=== PATIENT | female | born 1925 | race Caucasian/White ===

== ENCOUNTER 2016-08-20 22:12 | Emergency (ER) | payer OTHER ==
[2016-08-20 22:18] VITALS: PULSE 73; RESP 18; O2SAT 93
--- NOTE | 2016-08-20 22:34 | CPEKG ---
Heart Rate: 73 RR Interval: 822 QRSD Interval: 96 QT Interval: 404 QTC Interval: 446 QRS Captiva: 68 T Wave Captiva: 26 EKG Severity - ABNORMAL ECG - EKG Impression: sinus rhythm Electronically Signed By: Travis Fu 21-Aug-2016 14:39:07
[2016-08-20 22:50] LABS: ADD DIFF? YES; ADD MORPH? NO; ADD SCAN? NO; ATYPICAL LYMPHOCYTE FLAG 10 (0-99); FRAGMENT RBC FLAG 0 (0-99); HEMATOCRIT 40.5 % (38.0-47.0); HEMOGLOBIN 13.3 g/dL (12.6-16.3); LEFT SHIFT FLG 0 (0-99); LIPEMIA HEMOLYSIS FLAG 80 (0-99); MEAN CELL HEMOGLOBIN 28.4 pg (27.9-34.1); MEAN CELL HEMOGLOBIN CONCENTR. 32.8 g/dL (32.4-36.7); MEAN CELL VOLUME 86.4 fL (81.5-99.8); MEAN PLATELET VOLUME 10.5 fL (8.7-11.7); PLATELET CLUMPS FLAG 0 (0-99); PLATELET COUNT 194 10^3/uL (150-400); RED BLOOD CELL COUNT 4.69 10^6/uL (4.18-5.33); RED CELL DISTRIBUTION WIDTH 14.1 % (11.5-15.2)
[2016-08-20 23:00] LABS: ANION GAP 13 mEq/L (8-16); CALCIUM 9.3 mg/dL (8.5-10.4); CARBON DIOXIDE 26 mEq/l (22-31); CHLORIDE 103 mEq/L (97-110); GLOMERULAR FILTRATION RATE 52; GLUCOSE 115 mg/dL (70-100); POTASSIUM 3.5 mEq/L (3.5-5.2); SODIUM 142 mEq/L (134-144)
[2016-08-20 23:11] LABS: TROPONIN I < 0.012 ng/mL (0-0.034)
[2016-08-20 23:20] LABS: LARGE PLATELETS PRESENT; PLATELET ESTIMATE ADEQUATE (ADEQ)
--- NOTE | 2016-08-20 23:35 | EDPHY ---
H & P Stated Complaint: c/o LUE pain ongoing since 1900 Time Seen by Provider: 08/20/16 22:40 HPI/ROS: HPI The patient presents with left arm pain which began while she was seated watching TV at approximately 7:00 p.m. tonight. The pain came on slowly and has been intermittent ever since, she says it starts in her shoulder and radiates toward her elbow, it is somewhat achy in nature. She had a normal day today, she baked cup cakes. She was feeling well. She has had this pain intermittently over the last several months though this is the most severe episode. Because it was so severe, she called her neighbor who is her doctors . She received aspirin in the 911 was called. She denies any chest pain, shortness of breath, nausea or vomiting. REVIEW OF SYSTEMS Constitutional: No fever, no chills. Eyes: No discharge. ENT: No sore throat. Cardiovascular: No chest pain, no palpitations. Respiratory: No cough, no shortness of breath. Gastrointestinal: No abdominal pain, no vomiting. Genitourinary: No hematuria. Musculoskeletal: No back pain. Skin: No rashes. Neurological: No headache. PMHx: Hypertension, diabetes, history of rib fractures Soc Hx: Lives independently PHYSICAL General Appearance: Alert, no distress Eyes: Pupils equal and round no pallor or injection ENT, Mouth: Mucous membranes moist Respiratory: There are no retractions, lungs are clear to auscultation Cardiovascular: Regular rate and rhythm Gastrointestinal: Abdomen is soft and non-tender, no masses, bowel sounds normal Neurological: A&O, moves all extremities Skin: Warm and dry, no rashes Musculoskeletal: Neck is supple non tender Extremities: symmetrical, full range of motion Psychiatric: Patient is oriented X 3, there is no agitation Source: Patient Exam Limitations: No limitations - Medical/Surgical History Hx Asthma: No Hx Chronic Respiratory Disease: Yes Hx Diabetes: Yes Hx Cardiac Disease: Yes Hx Renal Disease: No Hx Cirrhosis: No Hx Alcoholism: No Hx HIV/AIDS: No Hx Splenectomy or Spleen Trauma: No Other PMH: Aortic tumor removed, Colon CA with surgery, hypercholesterol, HTN, TIA, DM 2 - Social History Smoking Status: Never smoked Constitutional: Initial Vital Signs Temperature (C) 36.8 C 08/20/16 22:14 Heart Rate 73 03/02/17 22:14 Respiratory Rate 18 08/20/16 22:14 Blood Pressure 156/104 H 08/20/16 22:14 O2 Sat (%) 93 08/20/16 22:14 O2 Delivery Mode Room Air Allergies/Adverse Reactions: "too much vitamin C" Allergy (Uncoded 07/10/15 11:34) Home Medications: Medication Instructions Recorded Aspirin [Aspirin 81mg (OTC)] 81 mg PO DAILY 12/06/14 Enalapril Maleate [Vasotec 20 MG 20 mg PO BID@,15 12/06/14 (RX)] Hydrochlorothiazide [HCTZ (RX)] 25 mg PO DAILY 12/06/14 Lovastatin 40 mg PO DAILY 12/06/14 amLODIPine BESYLATE [Norvasc] 5 mg PO DAILY 12/06/14 metFORMIN HCL [Glucophage] 1,000 mg PO HS 12/06/14 metFORMIN HCL [Glucophage] 500 mg PO BID@08,15 12/06/14 Ibuprofen [Motrin (*)] 600 mg PO Q8 #20 tab 07/10/15 Medical Decision Making - Diagnostics EKG Interpretation: EKG: Complete interpretation has been separately recorded in the [facility] archive. Summary impression: T-wave flattening in leads 3, T-wave inversions in V1, interpreted by me Imaging: Chest x-ray shows mild cardiomegaly, unchanged from prior, images reviewed by me and interpreted by Radiology ED Course/Re-evaluation: The patient had improvement in her symptoms without any intervention in the emergency room. Labs were checked and were unremarkable, including initial troponin. Chest x-ray was normal. EKG showed T-wave inversions without any old for comparison. Given that the patient has not ever had any provocative cardiac testing, I feel she should be admitted to the hospital for serial troponins and stress test. There are no beds available in the hospital and the patient was comfortable with transfer out. I spoke with the hospitalist at [facility] and she accepts patient for transfer. Dr. Cha Differential Diagnosis: This is an 89-year-old female with hypertension and diabetes who presents from home with several hours of intermittent at atraumatic left-sided arm pain. She has no other symptoms. Differential diagnosis includes ACS, muscle spasm, less likely aortic dissection. - Data Points Laboratory Results: Laboratory Results 08/20/16 22:40 08/20/16 22:40 08/20/16 08/20/16 22:40 22:40 WBC 12.71 10^3/uL H 10^3/uL (3.80-9.50) RBC 4.69 10^6/uL 10^6/uL (4.18-5.33) Hgb 13.3 g/dL g/dL (12.6-16.3) Hct 40.5 % % (38.0-47.0) MCV 86.4 fL fL (81.5-99.8) MCH 28.4 pg pg (27.9-34.1) MCHC 32.8 g/dL g/dL (32.4-36.7) RDW 14.1 % % (11.5-15.2) Plt Count 194 10^3/uL 10^3/uL (150-400) MPV 10.5 fL fL (8.7-11.7) Neut % (Auto) Not Reported Lymph % (Auto) Not Reported Dundy % (Auto) Not Reported Eos % (Auto) Not Reported Baso % (Auto) Not Reported Nucleat RBC Rel Count 0.0 % % (0.0-0.2) Absolute Neuts (auto) Not Reported Absolute Lymphs (auto) Not Reported Absolute Monos (auto) Not Reported Absolute Eos (auto) Not Reported Absolute Basos (auto) Not Reported Absolute Nucleated RBC 0.00 10^3/uL 10^3/uL (0-0.01) Immature Gran % Not Reported Seg Neutrophils % 36 % % Band Neutrophils % 2 % % Lymphocytes % 28 % % Monocytes % 28 % % Eosinophils % 4 % % Basophils % 2 % % Immature Gran # Not Reported Absolute Seg Neuts 4.58 10^/uL 10^/uL (1.70-6.50) Absolute Band Neuts 0.25 10^3/uL 10^3/uL (0.00-0.70) Absolute Lymphocytes 3.56 10^3/uL H 10^3/uL (1.00-3.00) Absolute Monocytes 3.56 10^3/uL H 10^3/uL (0.30-0.80) Absolute Eosinophils 0.51 10^3/uL H 10^3/uL (0.03-0.40) Absolute Basophils 0.25 10^3/uL H 10^3/uL (0.02-0.10) RBC/WBC/PLT Morphology NORMAL (NORMAL) Platelet Estimate ADEQUATE (ADEQ) Large Platelets PRESENT H Smear Review By Pending Sodium 142 mEq/L mEq/L (134-144) Potassium 3.5 mEq/L mEq/L (3.5-5.2) Chloride 103 mEq/L mEq/L (97-110) Carbon Dioxide 26 mEq/l mEq/l (22-31) Anion Gap 13 mEq/L mEq/L (8-16) BUN 27 mg/dL H mg/dL (7-23) Creatinine 1.0 mg/dL mg/dL (0.6-1.0) Estimated GFR 52 Glucose 115 mg/dL H mg/dL (70-100) Calcium 9.3 mg/dL mg/dL (8.5-10.4) Troponin I < 0.012 ng/mL ng/mL (0-0.034) Departure - Departure Disposition: [facility] Clinical Impression: Left arm pain HTN (hypertension) Qualifiers: Hypertension type: essential hypertension Qualified Code(s): I10 - Essential ( primary) hypertension Diabetes Qualifiers: Diabetes mellitus type: type 2 Diabetes mellitus complication status: without complication Condition: Fair Referrals: Sahil Castellanos MD [Primary Care Provider] - As per Instructions
[2016-08-21 02:16] VITALS: BP 156/75; TEMP 98.1
== END 2016-08-21 03:10 | disposition short-term general hospital (02) ==
LOC: UNDOADMOB 08-21 00:48
DX: M79.602 Pain in left arm (principal); I10 Essential (primary) hypertension; E11.9 Type 2 diabetes mellitus without complications; Z85.038 Personal history of other malignant neoplasm of large intestine; Z79.82 Long term (current) use of aspirin

== ENCOUNTER 2016-10-17 05:51 | Emergency (ER) | payer OTHER ==
[2016-10-17] MEDS ORDERED: TRANEXAMIC ACID 1,000 MG/10 ML VIAL TP ONE (06:02)
[2016-10-17] MEDS ORDERED: OXYMETAZOLINE 30 ML NASAL SPRAY ONE (06:08)
[2016-10-17] MEDS ORDERED: OXYMETAZOLINE 30 ML NASAL SPRAY EACHNARE ONE (06:13)
--- NOTE | 2016-10-17 06:28 | EDPHY ---
H & P Stated Complaint: epistaxis Time Seen by Provider: 10/17/16 06:02 HPI/ROS: HPI The patient presents with epistaxis from right nostril which began about 2 hours ago. She got up in the night to use the bathroom and when she sat back down in bed she had acute onset of bleeding from her right nostril. This was painless. This continued for about 2 hours. She tried Afrin and packing it with cotton balls, however neither worked so she came into the emergency room with her daughter. She has been taking Plavix, her last dose is supposed to be today for CAD. She has had history of several nosebleeds and has been seen in the ER about 3 times before for these. She has required cautery and packing. REVIEW OF SYSTEMS Constitutional: No fever, no chills. Eyes: No discharge. ENT: No sore throat. Skin: No rashes. Neurological: No headache. PMHx: CAD, recurrent epistaxis Soc Hx: Lives at home PHYSICAL General Appearance: Alert, no distress Eyes: Pupils equal and round no pallor or injection ENT, Mouth: Mucous membranes moist, right-sided mild active bleeding from anterior nares Respiratory: There are no retractions, lungs are clear to auscultation Psychiatric: Patient is oriented X 3, there is no agitation Source: Patient, Family - Personal History Current Tetanus/Diphtheria Vaccine: No - Medical/Surgical History Hx Asthma: No Hx Chronic Respiratory Disease: Yes Hx Diabetes: Yes Hx Cardiac Disease: Yes Hx Renal Disease: No Hx Cirrhosis: No Hx Alcoholism: No Hx HIV/AIDS: No Hx Splenectomy or Spleen Trauma: No Other PMH: Aortic tumor removed, Colon CA with surgery, hypercholesterol, HTN, TIA, DM 2 - Social History Smoking Status: Never smoked Constitutional: Initial Vital Signs Heart Rate 93 10/17/16 05:52 Respiratory Rate 24 H 10/17/16 05:52 Blood Pressure 88/67 L 10/17/16 05:52 O2 Sat (%) 92 10/17/16 05:52 O2 Delivery Mode Room Air Allergies/Adverse Reactions: "too much vitamin C" Allergy (Uncoded 07/10/15 11:34) Home Medications: Medication Instructions Recorded Aspirin [Aspirin 81mg (OTC)] 81 mg PO DAILY 12/06/14 Enalapril Maleate [Vasotec 20 MG 20 mg PO BID@,15 12/06/14 (RX)] Hydrochlorothiazide [HCTZ (RX)] 25 mg PO DAILY 12/06/14 Lovastatin 40 mg PO DAILY 12/06/14 amLODIPine BESYLATE [Norvasc] 5 mg PO DAILY 12/06/14 metFORMIN HCL [Glucophage] 1,000 mg PO HS 12/06/14 metFORMIN HCL [Glucophage] 500 mg PO BID@08,15 12/06/14 Ibuprofen [Motrin (*)] 600 mg PO Q8 #20 tab 07/10/15 Amoxicillin/Clavulanate Pot 875 mg PO BID #14 tab 10/17/16 [Augmentin 875 MG TAB (*)] Plavix 10/17/16 Medical Decision Making Differential Diagnosis: This is an 89-year-old female on Plavix with recurrent epistaxis which began spontaneously 2 hours ago. She has been unable to control the bleeding at home. Differential diagnosis includes bleeding from Kiesselbach's plexus, mucosal irritation, posterior nosebleed. In the emergency room, patient was given Afrin and a nose clamp for 10 minutes. Nose clamp was removed an patient was given tranexamic acid 500 mg intranasally on packing. This did not control her bleeding, thus I placed a anterior rhino rocket which did control the bleeding. She will be discharged from the emergency room with follow up with her ENT in 2 days. I have started her on antibiotics. - Data Points Medications Given: Discontinued Medications Oxymetazoline HCl (Afrin Nasal [place]) 2 sprays EACHNARE EDNOW ONE Stop: 10/17/16 06:14 Last Admin: 10/17/16 06:15 Dose: 2 sprays Tranexamic Acid (Cyklokapron) 500 mg TP EDNOW ONE Stop: 10/17/16 06:03 Last Admin: 10/17/16 06:02 Dose: 500 mg Departure - Departure Disposition: Home, Routine, Self-Care Clinical Impression: Acute anterior epistaxis Condition: Good Instructions: Nosebleed (ED) Additional Instructions: Please follow-up with your Ear Nose and Throat doctor on Wednesday to have the packing removed. You should take the antibiotic until then. Referrals: Sahil Castellanos MD [Primary Care Provider] - As per Instructions Prescriptions: Amoxicillin/Clavulanate Pot [Augmentin 875 MG TAB (*)] 875 mg PO BID #14 tab
[2016-10-17 07:06] VITALS: RESP 16; O2SAT 96
[2016-10-17] MEDS ORDERED: AMOXICILLIN/CLAVULANATE POT 875/125 MG TAB PO ONE (07:52)
[2016-10-17 07:56] VITALS: BP 147/82; PULSE 77
== END 2016-10-17 07:55 | disposition home or self-care (01) ==
PROC: 2Y41X5Z Packing of Nasal Region using Packing Material (ICD-10-PCS; principal; 2016-10-17)
DX: R04.0 Epistaxis (principal); I25.10 Atherosclerotic heart disease of native coronary artery without angina pectoris; E11.9 Type 2 diabetes mellitus without complications; I10 Essential (primary) hypertension; Z79.82 Long term (current) use of aspirin; Z79.84 Long term (current) use of oral hypoglycemic drugs; Z85.038 Personal history of other malignant neoplasm of large intestine

== ENCOUNTER 2017-07-31 16:06 | Emergency (ER) | payer OTHER ==
--- NOTE | 2017-07-31 16:21 | EDPHY ---
H & P Time Seen by Provider: 07/31/17 16:15 HPI/ROS: CHIEF COMPLAINT: Chest pain HISTORY OF PRESENT ILLNESS: The patient is an 89 y/o female with CAD, s/p angioplasty (August 2016), complaining of sudden onset left-sided chest pain, onset 40 minutes ago. She bent over to take her shoes off, after which the chest pain began. The pain felt achy and did not worsen while breathing. Her daughter gave her 1 nitroglycerin (which she swallowed) and 3 baby aspirin (which she chewed). The chest pain resolved within less than 5 minutes. Denies prior history of similar pain. Prior cardiac symptoms involved left arm achiness. No arm achiness today. No nausea, vomiting, shortness of breath, abdominal pain, urinary or bowel complaints, cough, numbness. REVIEW OF SYSTEMS: Aside from elements discussed in the HPI, a comprehensive 10-point review of systems was reviewed and is negative. Past Medical/Surgical History: Angioplasty (August 2016), aortic tumor removal, colon cancer, colon surgery, hypercholesteremia, hypertension, TIA, type II diabetes Social History: Daughter at bedside, lives in [place], retired Smoking Status: Never smoked Physical Exam: General Appearance: Alert, pleasant Eyes: Pupils equal and round, no conjunctival pallor or injection ENT, Mouth: Mucous membranes moist Neck: Normal inspection Respiratory: Lungs are clear to auscultation Cardiovascular: Regular rate and rhythm. Left anterior chest wall tenderness Gastrointestinal: Abdomen is soft and non-tender Neurological: A&O, nonfocal Skin: Warm and dry, no rash Extremities: Nontender, no pedal edema Psychiatric: Mood and affect normal Constitutional: Initial Vital Signs Temperature (C) 36.6 C 07/31/17 16:10 Heart Rate 74 07/31/17 16:10 Respiratory Rate 18 07/31/17 16:10 Blood Pressure 140/76 H 07/31/17 16:10 O2 Sat (%) 93 07/31/17 16:10 O2 Delivery Mode Room Air O2 (L/minute) 2 Allergies/Adverse Reactions: "too much vitamin C" Allergy (Uncoded 07/31/17 16:08) Home Medications: Medication Instructions Recorded Aspirin [Aspirin 81mg (OTC)] 81 mg PO DAILY 12/06/14 Enalapril Maleate [Vasotec 20 MG 20 mg PO BID@09,15 12/06/14 (RX)] Hydrochlorothiazide [HCTZ (RX)] 25 mg PO DAILY 12/06/14 amLODIPine BESYLATE [Norvasc] 5 mg PO DAILY 12/06/14 metFORMIN HCL [Glucophage] 1,000 mg PO HS 12/06/14 metFORMIN HCL [Glucophage] 500 mg PO BID@08,15 12/06/14 Ibuprofen [Motrin (*)] 600 mg PO Q8 #20 tab 07/10/15 Actos 07/31/17 Lovastatin 07/31/17 Medical Decision Making - Diagnostics EKG Interpretation: EKG interpreted by me reveals normal sinus rhythm with a rate of 71, normal axis , normal intervals, ST and T segments normal. Interpretation: normal EKG Imaging Results: Chest X-Ray 07/31/17 16:16 Impression: Mild congestive heart failure. Imaging: I viewed and interpreted images myself ED Course/Re-evaluation: The patient is an 89 y/o female with a history of an angioplasty (August 2016), aortic tumor, hypertension, TIA, and diabetes presenting with sudden onset left- sided chest pain, onset 40 minutes ago. The chest pain lasted 5 minutes and has completely resolved. Doubt that NTG helped, since she swalled the NTG tablet. On exam she has left anterior chest wall tenderness. Stat EKG reveals no evidence of ischemia or dysrhythmia. Labs, chest x-ray ordered. Prior cardiac symptom was left arm achiness, doubt that this brief episode of chest pain represents cardiac ischemia. 1716: Reassessed patient and discussed imaging findings. Remains asymptomatic. No evidence of acute coronary syndrome, given transient episode of atypical chest discomfort. After careful consideration, I feel this patient is safe and stable for discharge home. Discussed with the patient and her daughter. NTG instructions given. Return precautions provided; patient and her daughter are comfortable with this plan Differential Diagnosis: Differential diagnosis includes though it is not limited to pneumonia, pneumothorax, pulmonary embolism, aortic dissection, pericarditis, acute coronary syndrome. - Data Points Laboratory Results: Laboratory Results 07/31/17 16:23 07/31/17 16:23 Departure - Departure Disposition: Home, Routine, Self-Care Clinical Impression: Chest pain Qualifiers: Chest pain type: other chest pain Qualified Code(s): R07.89 - Other chest pain ; R07.8 - Other chest pain Condition: Good Instructions: Nitroglycerin (By mouth), Chest Pain (ED) Additional Instructions: If the chest pain occurs, take nitroglycerin under the tongue. If the chest pain pain does not completely resolve, you may take 2 more nitroglycerin, spaced 5 minutes apart. If you continue to have chest pain, return to the emergency department. Referrals: Sahil Castellanos MD [Primary Care Provider] - As per Instructions Report Scribed for: Liat Gonzales Report Scribed by: Mignon Centeno Date of Report: 07/31/17 Time of Report: 16:21 Physician Review and Approval Statement: 07/31/17 16:21 Portions of this note were transcribed by a medical artist. I personally performed a history, physical exam, medical decision making, and confirmed accuracy of information the transcribed note.
--- NOTE | 2017-07-31 16:24 | CPEKG ---
Heart Rate: 71 RR Interval: 845 P-R Interval: 164 QRSD Interval: 92 QT Interval: 396 QTC Interval: 431 P Marshall: 15 QRS Marshall: 80 T Wave Marshall: 19 EKG Severity - NORMAL ECG - EKG Impression: SINUS RHYTHM Electronically Signed By: Liat Gonzales 31-Jul-2017 21:24:29
[2017-07-31 16:39] LABS: PLATELET COUNT 205 10^3/uL (150-400)
[2017-07-31 17:23] VITALS: BP 103/66; PULSE 73; RESP 20; TEMP 97.5; O2SAT 92
== END 2017-07-31 17:22 | disposition home or self-care (01) ==
DX: R07.89 Other chest pain (principal); I10 Essential (primary) hypertension; E11.9 Type 2 diabetes mellitus without complications; Z79.82 Long term (current) use of aspirin; Z79.84 Long term (current) use of oral hypoglycemic drugs; Z85.038 Personal history of other malignant neoplasm of large intestine